=== PATIENT | male | born 1985 ===

== ENCOUNTER 2023-10-27 14:15 | Outpatient (CLI) | payer BC, SELFPAY ==
--- NOTE | ~2023-10-27 | US_ITS ---
EXAMINATION: US soft tissue groin RT DATE: 10/27/2023 14:38 INDICATION: Right lower quadrant/inguinal pain when coughing TECHNIQUE: Multiple grayscale and Doppler ultrasound images of the right inguinal region of concern w ere obtained. COMPARISON: None FINDINGS/IMPRESSION: No evident no evident right inguinal hernia, pathologically enlarged lymphadenopathy or other abnorma l masses or fluid collections identified at the region of concern. Reviewed, dictated and finalized at location A.
== END 2023-10-27 14:16 ==
PROVIDERS: PCP Nurse Practitioner Family; Visit Provider Nurse Practitioner Family
DX: R59.0 Localized enlarged lymph nodes (principal)
CPT/HCPCS: 76882